=== PATIENT | male | born 1955 | race Caucasian/White ===

== ENCOUNTER 2025-09-10 01:54 | Day surgery (SDC) | payer MEDICARE, SELFPAY ==
[2025-08-26 13:25] VITALS: BMI 28.4
--- NOTE | 2025-09-04 15:29 | PC.NURSE ---
Spoke with PATIENT regarding medication ELIQUIS. PATIENT verbalizes understanding that the last dose is to be taken on 09/06/2025 and the Endoscopist will instruct them when to restart after the procedure.
[2025-09-10 07:08] VITALS: BP 127/85; PULSE 76; RESP 14; TEMP 36.2; O2SAT 98; BMI 27.8
--- NOTE | 2025-09-10 07:12 | WPDANESEPPF ---
Anes - Initial Pre Proc Eval Procedure: Operation Date: 09/10/25 08:30 Proposed Procedures p Screening Colonoscopy - Trent Beckman MD Date/Time: 09/10/25 07:12 Surgeon: Trent Beckman MD Pre Op Diagnosis: Personal history of colon polyps, unspecified Patient Data Age: 70 Gender: M Height: 1.83 m Weight: 95 kg Allergies Allergy/AdvReac Type Severity Reaction Status Date / Time No Known Allergies Allergy Verified 08/26/25 13:31 Home Medications ?Medication ?Instructions ?Recorded ?Confirmed ?Type amlodipine 2.5 mg tablet 5 mg PO DAILY 08/15/24 08/26/25 History hydrochlorothiazide 25 mg tablet 25 mg PO DAILY 08/15/24 08/26/25 History lisinopril 40 mg tablet 40 mg PO DAILY 08/15/24 08/26/25 History allopurinol 100 mg tablet 300 mg PO DAILY 08/26/25 08/26/25 History apixaban 5 mg tablet (Eliquis) 5 mg PO ONCE 08/26/25 08/26/25 History Patient hx anesthesia problems: none Family hx anesthesia problems: none Results Review: All pre-operative results and documents have been reviewed as part of the pre-operative evaluation. [facility] Past Medical History Medical History Ex-smoker Overweight Gout Hypertension Surgical History Surgical History (Updated 09/10/25 @ 07:12 by Regan Velazquez MD) H/O colonoscopy Social History Social History Smoking status: Never smoker Alcohol intake: current Drinks per week: 2 Substance use: never Substance use type: does not use Living arrangements: alone Spiritual care concerns: No Anes - Eval Final PreProcedure Day of Procedure 09/10/25 07:12 Patient weight: overweight Heart: regular rate and rhythm Lungs: clear to auscultation Airway: Mallampati scale class II Neurological: alert and oriented Last oral intake: >/= 8 hours ASA classification: III Emergent: no Anesthetic plan: proceed Anesthesia type and monitoring: general GIVS and standard monitoring Results Review: All pre-operative results and documents have been reviewed as part of the pre-operative evaluation. Informed Consent: The patient's anesthetic plan and its attendant risks and benefits were discussed with the patient/family/POA. Questions were solicited and answers provided to the satisfaction of the patient/family/POA.
[2025-09-10] MEDS: LACTATED RINGERS 1,000 ML 150 ML IV CONT (07:29)
--- NOTE | 2025-09-10 08:34 | PM.IMHP ---
H&P: HPI History of Present Illness Date/Time: 09/10/25 08:34 Chief Complaint: History of colon polyps Narrative: The patient has a history of colonic polyps, the last colonoscopy was 1 year ago, where a 1.7 sessile serrated adenoma was removed from his right colon. There were 2 other sessile serrated polyps in the sigmoid. Review of Systems Review of Systems: All systems reviewed & are unremarkable except as noted in HPI and below PMFSH Past Medical History Medical History (Updated 09/10/25 @ 08:35 by Trent Beckman MD) Ex-smoker Overweight Gout Hypertension Surgical History Surgical History (Updated 09/10/25 @ 07:12 by Regan Velazquez MD) H/O colonoscopy Social History Social History Smoking status: Never smoker Alcohol intake: current Drinks per week: 2 Substance use: never Substance use type: does not use Living arrangements: alone Spiritual care concerns: No Meds Home Medications and Allergies Home Medications ?Medication ?Instructions ?Recorded ?Confirmed ?Type amlodipine 2.5 mg tablet 5 mg PO DAILY 08/15/24 09/10/25 History hydrochlorothiazide 25 mg tablet 25 mg PO DAILY 08/15/24 09/10/25 History lisinopril 40 mg tablet 40 mg PO DAILY 08/15/24 09/10/25 History allopurinol 100 mg tablet 300 mg PO DAILY 08/26/25 09/10/25 History apixaban 5 mg tablet (Eliquis) 5 mg PO ONCE 08/26/25 09/10/25 History Allergies Allergy/AdvReac Type Severity Reaction Status Date / Time No Known Allergies Allergy Verified 09/10/25 07:14 Vital Signs Vital Signs - 24 hr 09/10/25 07:08 Temperature 97.2 F L Pulse Rate 76 Respiratory Rate 14 Blood Pressure 127/85 Pulse Oximetry 98 Oxygen Delivery Room Air Exam Const: General: cooperative and healthy appearing Resp: Effort & Inspection: normal respiratory effort and able to speak in complete sentences Auscultation: clear to auscultation bilaterally Cardio: Rate: regular rate Rhythm: regular rhythm GI: Inspection: normal to inspection GI Palp: No No hepatosplenomegaly present Auscultation: normal bowel sounds Rectal Exam: deferred Skin: General skin exam: normal color Psych: Appearance: grossly normal Mental Status: mental status grossly normal Assessment and Plan Assessment and plan (1) History of colonic polyps: Code(s): Z86.0100 - Personal history of colon polyps, unspecified Status: Acute Assessment and Plan: The patient is deemed a good candidate for the procedure. Consent signed. Will proceed.
[2025-09-10] MEDS: SIMETHICONE ORAL SUSPENSION 20 MG/0.3 ML 30 ML BOTTLE 0.6 ML IRRIGATION (08:47)
--- NOTE | 2025-09-10 08:59 | S_PTH ---
PATIENT: Dagoberto Aguilar LOC: [facility] #:[id number] AGE/SX: 70/M ROOM: RE09/10/[address]: Trent Beckman MD : 1955 BED: DIS: 09/10/2025 SPEC #: [id number] RECD: 09/10/25 09:07 STATUS: [place] RE #: [id number] LJ: 09/10/25 08:[address]: Trent Beckman DEPT: [facility] Surgical RECD BY: Radha Graves ENTERED: 09/10/25 09:08 SP TYPE: Surgical OTHR DR: Cesar TraoreMD Tissues: A - Colon Polypectomy Procedures: Hematoxylin and Eosin Stain Gross and Microscopic Level 4
[2025-09-10 09:03] VITALS: BP 99/65; PULSE 67; RESP 14; O2SAT 98
[2025-09-10 09:13] VITALS: BP 108/78; PULSE 67; RESP 16; O2SAT 99
[2025-09-10 09:23] VITALS: BP 126/91; PULSE 65; RESP 16; O2SAT 99
== END 2025-09-10 09:32 | disposition home or self-care (01) ==
PROVIDERS: PCP Internal Medicine; Referring Provider Internal Medicine Gastroenterology; Visit Provider Internal Medicine Gastroenterology
PROC: 0DJD8ZZ Inspection of Lower Intestinal Tract, Via Natural or Artificial Opening Endoscopic (ICD-10-PCS; CPT 45378; principal; 2025-09-10 08:30)
DX: Z09 Encounter for follow-up examination after completed treatment for conditions other than malignant neoplasm (principal); D12.5 Benign neoplasm of sigmoid colon; K64.8 Other hemorrhoids; K57.30 Diverticulosis of large intestine without perforation or abscess without bleeding; I10 Essential (primary) hypertension; Z79.01 Long term (current) use of anticoagulants
CPT/HCPCS: 45385; 88305; J2003; J2704; J7120